=== PATIENT | female | born 1970 | race Caucasian/White ===

== ENCOUNTER → 2017-06-18 | Outpatient (CLI) | payer BC ==
--- NOTE | 2017-06-20 07:47 | MM ---
Reason for exam: screening (asymptomatic). Last mammogram was performed 1 year and 9 months ago. History: Family history of breast cancer in mother at age 58, breast cancer in aunt at age 60, and breast cancer in cousin at age 50. Physical Findings: A clinical breast exam by your physician is recommended on an annual basis and results should be correlated with mammographic findings. MG 3D Screening Mammo W/Cad Bilateral CC and MLO view(s) were taken. Prior study comparison: September 29, 2015, bilateral MG 3d screening mammo w/cad. May 06, 2013, bilateral digital screening mammo w/CAD. The breast tissue is heterogeneously dense. This may lower the sensitivity of mammography. No suspicious abnormality. No significant changes when compared with prior studies. ASSESSMENT: Negative, BI-RAD 1 RECOMMENDATION: Routine screening mammogram of both breasts in 1 year.
== END | disposition home or self-care (01) ==
LOC: RADMAMWWP 17:10
PROVIDERS: ATTEND Obstetrics & Gynecology
DX: Z12.31 Encounter for screening mammogram for malignant neoplasm of breast (principal); Z80.3 Family history of malignant neoplasm of breast
CPT/HCPCS: 77063; 77067

== ENCOUNTER 2018-06-07 12:32 | Emergency (ER) | payer OTHER, BC ==
[2018-06-07 12:48] VITALS: BP 127/66; PULSE 85; RESP 18; TEMP 96.8
--- NOTE | 2018-06-07 13:52 | ED ---
Fall HPI - General Chief Complaint: Fall Stated Complaint: slipped on ice/hit head Time Seen by Provider: 06/07/18 12:47 Source: patient, RN notes reviewed Mode of arrival: ambulatory Limitations: no limitations - History of Present Illness Initial Comments: This a 47-year-old female presents emergency Department with chief complaint of slip and fall, head injury. Patient states that she was going into work states that she slipped on some ice fell directly backwards. She states she has soreness multiple areas but her primary complaint is head injury, headache. Patient states that she did not pass out but states that she was slightly dazed at that time. Patient was sent in for evaluation. Denies any blurred vision, focal weakness. Patient states she is able to ambulate with no difficulty. Patient denies any current nausea vomiting, chest pain or shortness breath. - Related Data Home Medications Medication Instructions Recorded Confirmed Ibuprofen [Motrin Ib] 400 mg PO Q6H PRN 06/07/18 06/07/18 Allergies Allergy/AdvReac Type Severity Reaction Status Date / Time Sulfa (Sulfonamide Allergy Unknown Verified 06/07/18 12:55 Antibiotics) Review of Systems ROS Statement: Those systems with pertinent positive or pertinent negative responses have been documented in the HPI. ROS Other: All systems not noted in ROS Statement are negative. Past Medical History Past Medical History: No Reported History History of Any Multi-Drug Resistant Organisms: None Reported Past Surgical History: Section Past Psychological History: No Psychological Hx Reported Smoking Status: Never smoker Past Alcohol Use History: Occasional Past Drug Use History: None Reported General Exam Limitations: no limitations General appearance: alert, in no apparent distress Head exam: Present: atraumatic, normocephalic, normal inspection Eye exam: Present: normal appearance, PERRL, EOMI. Absent: scleral icterus, conjunctival injection, periorbital swelling ENT exam: Present: normal exam, normal oropharynx, mucous membranes moist, TM's normal bilaterally, normal external ear exam Neck exam: Present: normal inspection, full ROM. Absent: tenderness, meningismus, lymphadenopathy Respiratory exam: Present: normal lung sounds bilaterally. Absent: respiratory distress, wheezes, rales, rhonchi, stridor Cardiovascular Exam: Present: regular rate, normal rhythm, normal heart sounds. Absent: systolic murmur, diastolic murmur, rubs, gallop, clicks GI/Abdominal exam: Present: soft, normal bowel sounds. Absent: distended, tenderness, guarding, rebound, rigid Back exam: Absent: CVA tenderness (R), CVA tenderness (L) Neurological exam: Present: alert, oriented X3, CN II-XII intact, reflexes normal, other (Finger to nose intact bilaterally without overshooting). Absent : motor sensory deficit Skin exam: Present: warm, dry, intact, normal color. Absent: rash Course Vital Signs 06/07/18 12:45 Temperature 96.8 F L Pulse Rate 85 Respiratory 18 Rate Blood Pressure 127/66 O2 Sat by Pulse 95 Oximetry Medical Decision Making - Medical Decision Making 47-year-old female presented from for slip and fall. CT was obtained of the head and neck which showed no acute abnormality. She is neurologically intact and will be discharged with follow-up return parameters were discussed. Disposition Clinical Impression: Head injury, Fall from slipping on ice Disposition: HOME SELF-CARE Condition: Stable Instructions (If sedation given, give patient instructions): Head Injury (ED) Additional Instructions: Please return to the Emergency Department if symptoms worsen or any other concerns. Is patient prescribed a controlled substance at d/c from ED?: No Referrals: Talisha Ames MD [Primary Care Provider] - 1-2 days Time of Disposition: 14:32
--- NOTE | 2018-06-07 14:17 | CT ---
EXAMINATION TYPE: CT brain dionte wo con DATE OF EXAM: 06/07/2018 COMPARISON: None HISTORY: Pain/fall CT DLP: 1249.1 mGycm, Automated exposure control for dose reduction was used. CONTRAST: Patient injected with 0 mL of Isovue 300. CT of the brain is performed utilizing 3 mm thick sections through the posterior fossa and 3 mm thick sections through the remaining calvarium. Study is performed within 24 hours of arrival to the hospital. No abnormal hyperdensity is present to suggest an acute intracranial hemorrhage. No mass lesion is evident. No acute infarcts are evident. Ventricles and sulci are appropriate for the patient age. Paranasal sinuses and mastoid air cells within the [id number] are clear. IMPRESSIONS: 1. Normal CT brain. CT cervical spine. COMPARISON: None CT of the cervical spine is performed in the axial plane at 2 mm thick sections. Reconstructed image s in the coronal, and sagittal plane are reviewed on the computer. No acute fractures are evident. Vertebral body alignment is normal. Disc heights are preserved. Vertebral body heights are preserved. No spinal canal stenosis is evident. No neural foraminal stenosis is evident. IMPRESSIONS: 1. Normal CT cervical spine.
== END 2018-06-07 14:47 | disposition home or self-care (01) ==
LOC: EC 12:32
DX: S09.90XA Unspecified injury of head, initial encounter (principal); R52 Pain, unspecified; Z88.2 Allergy status to sulfonamides; W00.0XXA Fall on same level due to ice and snow, initial encounter; Y93.01 Activity, walking, marching and hiking; Y92.69 Other specified industrial and construction area as the place of occurrence of the external cause; Y99.0 Civilian activity done for income or pay
CPT/HCPCS: 70450; 72125; 99283

== ENCOUNTER → 2019-11-14 | Outpatient (CLI) | payer BC ==
--- NOTE | 2019-11-18 08:34 | MM ---
Reason for exam: screening (asymptomatic). Last mammogram was performed 2 years and 5 months ago. History: Family history of breast cancer in mother at age 58, breast cancer in aunt at age 60, and breast cancer in cousin at age 50. Physical Findings: A clinical breast exam by your physician is recommended on an annual basis and results should be correlated with mammographic findings. MG 3D Screening Mammo W/Cad Bilateral CC and MLO view(s) were taken. Prior study comparison: June 18, 2017, bilateral MG 3d screening mammo w/cad. September 29, 2015, bilateral MG 3d screening mammo w/cad. Finding: There is an intermediate concern, suspicious 8 mm equal density (isodense) mass in the upper outer quadrant of the left breast consistent with possible cyst. ASSESSMENT: Incomplete: need additional imaging evaluation, BI-RAD 0 RECOMMENDATION: Ultrasound of the left breast. [facility] will attempt to contact patient to return for ultrasound.
== END | disposition home or self-care (01) ==
LOC: RADMAMWWP 13:45
PROVIDERS: ATTEND Obstetrics & Gynecology
DX: Z12.31 Encounter for screening mammogram for malignant neoplasm of breast (principal)
CPT/HCPCS: 77063; 77067

== ENCOUNTER → 2019-11-25 | Outpatient (CLI) | payer BC ==
--- NOTE | 2019-11-26 08:20 | USB ---
Reason for exam: additional evaluation requested from abnormal screening. History: Family history of breast cancer in mother at age 58, breast cancer in aunt at age 60, and breast cancer in cousin at age 50. Physical Findings: Nurse did not find any significant physical abnormalities on exam. US Breast Workup Limited LT Left limited breast ultrasound including focal area of concern, retroareolar and axilla demonstrates a 4 x 2 x 6mm oval, cystic lesion at 1 o'clock and a 7 x 5 x 9mm oval, cystic lesion at 2 o'clock. These results were verbally communicated with the patient and result sheet given to the patient on 11/25/19. ASSESSMENT: Benign, BI-RAD 2 RECOMMENDATION: Return to routine screening mammogram schedule for both breasts.
== END | disposition home or self-care (01) ==
LOC: RADUSWWP 14:55
PROVIDERS: ATTEND Obstetrics & Gynecology
DX: R92.8 Other abnormal and inconclusive findings on diagnostic imaging of breast (principal)

== ENCOUNTER → 2020-09-23 | Outpatient (CLI) | payer BC ==
--- NOTE | 2020-09-23 15:49 | XR ---
EXAMINATION TYPE: XR chest 2V DATE OF EXAM: 09/23/2020 COMPARISON: 01/24/2013 TECHNIQUE: PA and lateral views submitted. HISTORY: Cough FINDINGS: The lungs are clear and there is no pneumothorax, pleural effusion, or focal pneumonia. Heart size normal. No overt failure. Mild hyperinflation. IMPRESSION: 1. No acute process.
== END | disposition home or self-care (01) ==
LOC: RADXRMAIN 15:15
PROVIDERS: ATTEND Surgery
DX: R05 Cough (principal)
CPT/HCPCS: 71046

== ENCOUNTER → 2020-09-23 | Outpatient (CLI) | payer BC ==
--- NOTE | 2020-09-23 15:19 | P.BASOAP ---
Subjective Progress Note Date: 09/23/20 Principal diagnosis: Cough, dysphagia Patient has had increasing cough last few months. Also with dysphagia. History of lap band 2006. Patient has an AP small band in place. She is unaware how much fluid is in the band. Last visit with the patient was at [facility]. Denies vomiting. No pain. Cough is nonproductive. No recent imaging. Currently weight 239. She was 265 prior to her lap band. Her lowest weight was 205. Patient has been exercising with a personal lines sales executive fairly regularly. She is frustrated with her slow weight loss. Objective - Exam Abdomen: Soft, nontender, nondistended Assessment/Plan (1) Morbid obesity Narrative/Plan: 50-year-old female with ongoing morbid obesity and recent complaints of increasing cough. Patient's dysphagia may be slightly worse. At this time we have decided to empty the band temporarily to see if this helps with the patient's cough which seems to be worse in the evening. Also will obtain chest x-ray to evaluate for any infiltrates. Plan esophagram at the time of the next visit. We'll obtain documentation from her previous visit at [facility]. Plan: Date: Initial Weight: Initial BMI: Current Weight: Current BMI: Type of Surgery: Total Volume in Band: Previous Volume: Volume Removed: Volume Added: Band Size:
[2020-09-23 15:32] VITALS: BMI 39.7
== END ==
LOC: BARWHC3 14:47
PROVIDERS: ATTEND Surgery
DX: E66.01 Morbid (severe) obesity due to excess calories (principal); R05 Cough; R13.10 Dysphagia, unspecified; Z98.84 Bariatric surgery status; Z88.2 Allergy status to sulfonamides; Z68.39 Body mass index [BMI] 39.0-39.9, adult
CPT/HCPCS: 99212

== ENCOUNTER → 2020-11-19 | Outpatient (CLI) | payer BC ==
--- NOTE | 2020-11-23 11:04 | MM ---
Reason for exam: screening (asymptomatic). Last mammogram was performed 1 year ago. History: Family history of breast cancer in mother at age 58, breast cancer in aunt at age 60, and breast cancer in cousin at age 50. Physical Findings: A clinical breast exam by your physician is recommended on an annual basis and results should be correlated with mammographic findings. MG 3D Screening Mammo W/Cad Bilateral CC and MLO view(s) were taken. Prior study comparison: November 14, 2019, bilateral MG 3d screening mammo w/cad. June 18, 2017, bilateral MG 3d screening mammo w/cad. The breast tissue is heterogeneously dense. This may lower the sensitivity of mammography. Stable benign calcifications. There is no discrete abnormality. No significant changes when compared with prior studies. ASSESSMENT: Benign, BI-RAD 2 RECOMMENDATION: Routine screening mammogram of both breasts in 1 year.
== END | disposition home or self-care (01) ==
LOC: RADMAMWWP 16:29
PROVIDERS: ATTEND Obstetrics & Gynecology
DX: Z12.31 Encounter for screening mammogram for malignant neoplasm of breast (principal); Z80.3 Family history of malignant neoplasm of breast
CPT/HCPCS: 77063; 77067

== ENCOUNTER → 2020-11-29 | Outpatient (CLI) | payer BC ==
--- NOTE | 2020-11-29 09:52 | FL ---
EXAMINATION TYPE: FL barium swallow DATE OF EXAM: 11/29/2020 CLINICAL HISTORY: Reflux symptoms. History of lap band TECHNIQUE: A single contrast esophagram is performed utilizing air and barium. A total of 43 second s of fluoroscopic time was utilized during procedure and 45 images obtained. COMPARISON: 11/02/2010 FINDINGS: The esophagus shows normal motility and emptying into the stomach. No evidence of hiatal h ernia or stricture noted. No significant gastroesophageal reflux was seen during real time performanc e of this study. Lap band is noted. IMPRESSION: No significant abnormality is seen to account for patient's symptoms.
== END | disposition home or self-care (01) ==
LOC: RADUSWWP 09:06
PROVIDERS: ATTEND Surgery
DX: Z98.84 Bariatric surgery status (principal); K21.9 Gastro-esophageal reflux disease without esophagitis
CPT/HCPCS: 74220

== ENCOUNTER → 2021-01-18 | Outpatient (CLI) | payer BC ==
[2021-01-18 15:44] VITALS: BP 118/77; PULSE 76; RESP 16; TEMP 98.4; BMI 39.9
--- NOTE | 2021-01-18 16:51 | P.BASOAP ---
Subjective Progress Note Date: 01/18/21 Principal diagnosis: Morbid obesity Patient returns for evaluation. He was seen in September and had 9 mL removed from her lap band. That led to resolution in her reflux and dysphagia. Upper GI from November shows no evidence of obstruction or prolapse. She has only gained 1 pound since her last visit. She says it is difficult with the band being empty and she is surprised she has not lost more weight. Objective - Vital Signs Vital signs: Vital Signs Temp 98.4 F 01/18/21 15:42 Pulse 76 01/18/21 15:42 Resp 16 01/18/21 15:42 BP 118/77 01/18/21 15:42 Pulse Ox Intake & Output 01/17/21 01/18/21 01/18/21 18:59 06:59 18:59 Weight 108.862 kg - Exam Abdomen: Soft, nontender, nondistended Assessment/Plan (1) Morbid obesity Narrative/Plan: Options discussed with patient. She is interested in possible conversion to gastric bypass. This will be looked into further. For now patient would like to have some fluid added to her band. We agreed to add 5 mL at this time. Will return to add more fluid if needed. The patient's lap band port was palpated. The site was aseptically prepped. The Guerra needle was advanced into the port. A total of 5ml of fluid was added. Pressure was held and a sterile dressing was applied. Plan: Date: 01/18/21 Initial Weight: 108.409 kg Initial BMI: 39.7 Current Weight: 108.862 kg Current BMI: 39.9 Type of Surgery: Total Volume in Band: Previous Volume: Volume Removed: Volume Added: Band Size:
== END ==
LOC: BARWHC3 15:17
PROVIDERS: ATTEND Surgery
DX: Z46.51 Encounter for fitting and adjustment of gastric lap band (principal); E66.01 Morbid (severe) obesity due to excess calories; Z68.39 Body mass index [BMI] 39.0-39.9, adult; Z88.2 Allergy status to sulfonamides
CPT/HCPCS: 99212

== ENCOUNTER → 2021-05-02 | Outpatient (CLI) | payer BC ==
[2021-05-02 11:18] VITALS: BMI 40.7
== END ==
LOC: BARWHC3 08:57
PROVIDERS: ATTEND Surgery
DX: E66.01 Morbid (severe) obesity due to excess calories (principal); Z71.3 Dietary counseling and surveillance; Z68.41 Body mass index [BMI] 40.0-44.9, adult; Z88.2 Allergy status to sulfonamides
CPT/HCPCS: 97804

== ENCOUNTER → 2021-06-16 | Outpatient (CLI) | payer BC ==
[2021-06-16 14:02] LABS: INR 0.9 (<1.2); Partial Thromboplastin Time 22.9 sec (22.0-30.0); Prothrombin Time 9.8 sec (9.0-12.0)
[2021-06-16 19:39] LABS: HCT 41.5 % (37.2-46.3); HGB 13.6 g/dL (12.0-15.0); MCH 31.5 pg (27.0-32.0); MCHC 32.8 g/dL (32.0-37.0); MCV 96.1 fL (80.0-97.0); Mean Platelet Volume 10.5 fL (9.5-12.2); Platelet Count 241 X 10*3/uL (140-440); RBC 4.32 X 10*6/uL (4.10-5.20); WBC 9.16 X 10*3/uL (4.50-10.00)
[2021-06-16 21:04] LABS: % Iron Saturation 22.46 (12.00-45.00); ALT 18 U/L (8-44); AST 19 U/L (13-35); African American GFR (CKD) 79.4 (60.0-200.0); Albumin 4.2 g/dL (3.8-4.9); Albumin/Globulin Ratio 1.96 (1.60-3.17); Alkaline Phosphatase 46 U/L (41-126); BUN/Creat Ratio 15.76 Ratio (12.00-20.00); Blood Urea Nitrogen 15.4 mg/dL (9.0-27.0); Calcium 9.1 mg/dL (8.7-10.3); Carbon Dioxide 18.4 mmol/L (20.0-27.5); Chloride 107 mmol/L (96-109); Ferritin 31.2 ng/mL (10.0-291.0); Globulin 2.1 g/dL (1.6-3.3); Glucose 92 mg/dL (70-110); Iron 82 ug/dL (50-170); Magnesium 2.2 mg/dL (1.5-2.4); Non-African American GFR(CKD) 68.5 (60.0-200.0); Phosphorus 2.8 mg/dL (2.4-5.1); Potassium 4.3 mmol/L (3.5-5.5); Sodium 139 mmol/L (135-145); Total Bilirubin <0.20 mg/dL (0.30-1.20); Total Iron Binding Capacity 367 ug/dL (228-460); Total Protein 6.3 g/dL (6.2-8.2)
[2021-06-16 21:09] LABS: Chol/HDL Ratio 3.57 Ratio; LDL Cholesterol,Calculated 93.4 mg/dL (0.0-131.0); Prealbumin 21.5 mg/dL (18.0-42.0)
[2021-06-17 15:32] LABS: Anabasine Urine <2.0 ng/mL (<2.0)
== END | disposition home or self-care (01) ==
LOC: LABPAT 13:04
PROVIDERS: ATTEND Surgery Plastic and Reconstructive Surgery
DX: Z01.812 Encounter for preprocedural laboratory examination (principal); Z20.822 Contact with and (suspected) exposure to COVID-19; E66.01 Morbid (severe) obesity due to excess calories; E55.9 Vitamin D deficiency, unspecified; D50.8 Other iron deficiency anemias; K50.90 Crohn's disease, unspecified, without complications; K90.89 Other intestinal malabsorption; K74.1 Hepatic sclerosis; N19 Unspecified kidney failure
CPT/HCPCS: 84255; 84134; 84425; 80061; 80053; 82607; 82728; 82525; 82746; 83540; 83550; 83735; 84100; 84443; 84590; 84630; 85027; 85610; 85730; 82306; 80323; 83970; 83036; 80307; 93005; G0482; U0003; C9803

== ENCOUNTER 2021-06-20 07:16 | Day surgery (SDC) | payer BC ==
[2021-06-13 18:29] VITALS: BMI 40.7
[~2021-06-20 07:16] MED LIST: CHLORHEXIDINE GLUCONATE 15 ML CUP MUCOUS MEM PRN; DEXAMETHASONE SOD PHOSPHATE 4 MG/ML 1 ML VIAL IV ONE; HYDROmorphone 1 MG/ML 1 ML SYRINGE IVP PRN; KETOROLAC 15 MG/ML 1 ML VIAL IVP SCH; LACTATED RINGERS 1,000 ML IV SCH; LIDOCAINE 1% (10MG/ML) FOR IV START INTRADERMA PRN; METOCLOPRAMIDE 5 MG/ML 2 ML VIAL IVP PRN; ONDANSETRON 4 MG/2 ML VIAL IVP ONE; PANTOPRAZOLE 40 MG/10 ML VIAL IVP PRN
[2021-06-20] MEDS ORDERED: BUPIVACAIN-EPI 0.25%-1:200,000 30 ML VIAL SQ ONE ×2 (07:33→09:09)
[2021-06-20] MEDS ORDERED: SCOPOLAMINE 1.5MG/72HR PATCH TRANSDERM PRN (07:48)
[2021-06-20] MEDS ORDERED: ACETAMINOPHEN TAB 500 MG TAB PO PRN (07:48)
[2021-06-20] MEDS ORDERED: GABAPENTIN 300 MG CAP PO PRN (07:48)
--- NOTE | 2021-06-20 07:48 | P.GSHP ---
History of Present Illness H&P Date: 06/20/21 CHIEF COMPLAINT: Complications from adjustable gastric band HISTORY OF PRESENT ILLNESS: The patient is a 50-year-old female who presents with dysphagia, gastroesophageal reflux disease and complications from adjustable gastric band for over 3 years. As a result, patient presents for removal of adjustable gastric band and all components. PAST MEDICAL HISTORY: Please see list. PAST SURGICAL HISTORY: Please see list. MEDICATIONS: Please see list. ALLERGIES: Please see list. SOCIAL HISTORY: No illicit drug use FAMILY HISTORY: No reports of Crohn disease or ulcerative colitis. REVIEW OF ORGAN SYSTEMS: CONSTITUTIONAL: No reports of fevers or chills. GI: Denies any blood in stools or constipation. PHYSICAL EXAM: VITAL SIGNS: Stable GENERAL: Well-developed pleasant and in no acute distress. HEENT: No scleral icterus. Extraocular movements grossly intact. Moist buccal mucosa. NECK: Supple without lymphadenopathy. CHEST: Unlabored respirations. Equal bilateral excursions. CARDIOVASCULAR: Regular rate and rhythm. Distal 2+ pulses. ABDOMEN: Soft, nondistended. MUSCULOSKELETAL: No clubbing, cyanosis, or edema. SKIN: Well-perfused. Good skin turgor. ASSESSMENT: 1. Morbid obesity due to excess calories, BMI 40.8 2. Complications from adjustable gastric band PLAN: 1. Recommend proceeding with removal of adjustable gastric band and all components with intraoperative esophagogastroduodenoscopy 2. DVT prophylaxis. 3. Antibiotic prophylaxis. Past Medical History Past Medical History: Hyperlipidemia Additional Past Medical History / Comment(s): Recent abn cholesterol. c/o acid reflux, muscle cramping around lab band port History of Any Multi-Drug Resistant Organisms: None Reported Past Surgical History: Bariatric Surgery, Section Additional Past Surgical History / Comment(s): EGD. Lap Band 2006 Past Anesthesia/Blood Transfusion Reactions: No Reported Reaction, Motion Si ckness Smoking Status: Former smoker - Past Family History Mother Family Medical History: Cancer Additional Family Medical History / Comment(s): breast cancer. (Maternal Aunt had breast cancer) Medications and Allergies Home Medications Medication Instructions Recorded Confirmed Type Ibuprofen [Motrin Ib] 400 mg PO Q6H PRN 06/07/18 06/13/21 History Calcium + Vitamin D 2 each PO BID 06/13/21 History Multivitamins, Thera [Multivitamin 1 tab PO DAILY 01/31/22 01/31/22 History (formulary)] Allergies Allergy/AdvReac Type Severity Reaction Status Date / Time Sulfa (Sulfonamide Allergy Unknown Verified 06/20/21 07:44 Antibiotics) steri strips adhesive Allergy skin Uncoded 06/20/21 07:44 blisters, itching
[2021-06-20] MEDS ORDERED: MELOXICAM 7.5 MG TAB PO SCH (07:49)
[2021-06-20] MEDS ORDERED: ENOXAPARIN 40 MG/0.4 ML SYRINGE SQ PRN (07:50)
[2021-06-20] MEDS ORDERED: NEOSTIGMINE 1 MG/ML 10 ML VIAL ONE (08:30)
[2021-06-20] MEDS ORDERED: fentaNYL (PF) 50 MCG/ML 2 ML AMP ONE (08:30)
[2021-06-20] MEDS ORDERED: ROCURONIUM 10 MG/ML (5 ML VIAL) IV ONE (08:30)
[2021-06-20] MEDS ORDERED: PROPOFOL 10 MG/ML 20 ML VIAL IV ONE (08:30)
[2021-06-20] MEDS ORDERED: GLYCOPYRROLATE 0.2 MG/ML 2 ML VIAL ONE (08:30)
[2021-06-20] MEDS ORDERED: SUCCINYLCHOLINE CHLORIDE VIAL 200 MG/10 ML VIAL IV ONE (08:30)
[2021-06-20] MEDS ORDERED: LIDOCAINE 1% INJ 10MG/ML (20 ML MDV) ONE (08:30)
[2021-06-20] MEDS ORDERED: MIDAZOLAM 2 MG/2 ML VIAL IVP ONE (08:30)
[2021-06-20] MEDS ORDERED: HYDROmorphone (PF) 1 MG/ML ONE (08:30)
--- NOTE | 2021-06-20 10:38 | P.OP ---
Date of Procedure: 06/20/21 Description of Procedure: SURGEON: ABHIJEET JIMENEZ MD PREOPERATIVE DIAGNOSES: 1. Morbid obesity due to excess calories 2. Body mass index of 40.0 3. Gastroesophageal reflux disease 4. Osteoarthritis of the knees 5. Complications from adjustable gastric band POSTOPERATIVE DIAGNOSES: 1. Morbid obesity due to excess calories 2. Body mass index of 40.0 3. Gastroesophageal reflux disease 4. Osteoarthritis of the knees 5. Complications from adjustable gastric band 6. Peritoneal adhesions greater omentum to abdominal wall epigastrium, left upper quadrant OPERATION: 1. Robotic-assisted da Hardy Xi laparoscopic removal of adjustable gastric band and all components. 2. Robotic-assisted da Hardy Xi laparoscopic lysis of adhesions, 30 minutes 3. Intraoperative esophagogastroduodenoscopy ANESTHESIA: General with local anesthetic. ESTIMATED BLOOD LOSS: 5 mL SPECIMENS REMOVED: 1. Adjustable gastric band and components Condition: stable Disposition: same day COMPLICATIONS: None. Operative Findings: 1. Moderate adhesions along the epigastrium due to adjustable gastric band 2. Adjustable gastric band port found along the epigastrium removed in total 3. Severe perihepatic including perigastric adhesions from adjustable gastric band with band embedded into the liver carefully dissected 4. Chronic gastritis without gastric banding erosion from upper endoscopy 5. Extremely dense subcutaneous tissue requiring dissection for port removal 6. Gallbladder wall thickening including pericholecystic adhesions suspicious for chronic cholecystitis INDICATIONS: The patient is a 50-year-old female who presents with complications of her adjustable gastric band. Surgical options were described including removal of the band. As she has persistent pain and discomfort from the band, removal of the adjustable gastric band and port including all components was proposed. Benefits and risks of the procedure were described. Informed consent was obtained. DESCRIPTION: The patient was brought into the operating room theater. She was placed supine. She had received Lovenox subcutaneously for DVT prophylaxis. Additionally she Peridex oral solution as an oral decontaminant was placed per anesthesia. After general induction, the abdomen was prepped and draped in s tandard sterile fashion. Ioban draping was placed along the abdomen. A robotic da Hardy Xi system was prepped and primed. Prior to incision, a timeout protocol was performed and confirmed with the surgical team. Attention was now brought to the intra-abdominal component of the procedure the removal of the adjustable gastric band. Incisions were proposed at 12 cm from the xiphoid. Proposed port sites were marked with indelible marker along the anterior axillary line bilaterally, mid clavicular line bilaterally with each port marked 10 cm from each other. Prior laparoscopic trocar sites were used. The port was palpated along the epigastrium. Her subcutaneous tissue was at least 5 cm in depth. A transverse 3 cm incision was placed over the adjustable gastric band port site using #11 blade. The incision was deepened to the subcutaneous tissue using electrocautery Bovie cautery. The port was identified and circumferentially dissected free from the surrounding tissues. Once freed, the port was removed from the pocket and placed onto the skin. The band was removed in total without injury to the stomach. Hemostasis was excellent. Next attention was brought to the laparoscopic portion of the case. A 5 mm 0 degrees laparoscopic trocar entry was performed along the left upper quadrant. The abdomen was insufflated to 15 mmHg pressure, which she tolerated well. Diagnostic laparoscopy demonstrated no injury to bowel, viscera, or mesentery. An 8 mm camera port was placed left lateral to the umbilicus at the epigastrium, 12 cm distal to the xiphoid. Next, 8-mm port was placed along the right mid abdomen. The 5 mm port was exchanged for 12 mm trocar. Another 8 mm trocar was placed on the left lateral abdominal wall. The robot was docked along the left lateral abdomen. The patient was repositioned in reverse Trendelenburg position, 21-degrees. A 30-degree camera was used. Using a Prograsp for arm 3, including scissors with cautery for arm 1, the robotic system was docked and primed as described. Instruments were interchanged by the assistant manager of operations. I had sat at the console. Moderate to severe adhesions along the epigastrium including right upper and lower quadrant and greater omentum to abdominal wall was found. Extensive lysis of adhesions over 30 minutes was performed using endo-scissors with cautery to free these adhesions including around the adjustable gastric band. Adjustable gastric band was embedded into the left lobe of the liver which was carefully dissected free. Additionally, the buckle of the adjustable gastric band was densely adherent to the deep tissue requiring cutting the band away from the buckle. The port was followed with its tubing to the gastric band. The gastrohepatic ligament was scarred from prior surgery. The cicatrix around the adjustable gastric band was carefully dissected free. The anti-prolapse stitch was divided and removed. Using scissors with cautery, the cicatrix of the port was incised. The band was then freed. Jasan adjustable gastric band was removed in total. Care was taken to avoid any gastrotomies. The band was unbuckled and cut. The tubing was cut approximately 5 cm distal to the actual adapter. I then went to the head of the bed to perform intraoperative esophagogastroduodenoscopy to evaluate for gastritis including gastric banding erosion and any full thickness injury to the stomach. An Olympus gastroscope was passed from the posterior oropharynx down to the esophagus, where the squamocolumnar junction was found LA grade B erosive esophagitis, chronic changes. The stomach was entered and bile was found and suctioned. Mild chronic gastritis was found along the antrum without gastric ulcers or duodenitis or duodenal ulcers. Retroflexion of the scope confirmed a Hill grade 2 lower esophageal valve. No full-thickness erosion from the prior band was encountered. No gastric band erosion was identified. The stomach was desufflated. The patient tolerated the procedure well. No evidence of leak was encountered from the removal of the band. The scope was removed with desufflation of the stomach. I re-scrubbed into the case. The adjustable gastric band was removed from the abdominal cavity via 12 mm port that was exchanged for the 5-mm port at the left upper abdomen. Diagnostic laparoscopy demonstrated complete removal of all foreign body. All instruments and pneumoperitoneum were evacuated from the abdominal cavity. The port extraction site was hemostatic. The port site was irrigated using normal saline and hydrogen peroxide. The incisions were reapproximated using 4- 0 Monocryl in a subcuticular interrupted fashion. Optifoam dressing was placed over the port extraction site. At the end of the procedure, needle, sponge and instrument counts were verified correct by the nursing surgical services director. The patient had tolerated the procedure well. An abdominal binder was placed. The patient was transferred to Postanesthesia Care Unit in stable condition. Postoperative findings with intraoperative images were discussed with the patient's family who were pleased with the level of care. Plan - Discharge Summary Discharge Rx Participant: No New Discharge Prescriptions: New Omeprazole [PriLOSEC] 40 mg PO DAILY #14 cap Simethicone [Gas-X] 125 mg PO AC-TID PRN #20 capsule PRN Reason: Pain Ibuprofen 800 mg PO Q8HR PRN #30 tablet PRN Reason: Pain Acetaminophen Tab [Tylenol Tab] 1,000 mg PO Q6HR PRN #30 tablet PRN Reason: Pain Continue Multivitamins, Thera [Multivitamin (formulary)] 1 tab PO DAILY Linaclotide [Linzess] 72 mcg PO DAILY Calcium + Vitamin D 2 each PO BID Discontinued Ibuprofen [Motrin Ib] 400 mg PO Q6H PRN PRN Reason: Pain Discharge Medication List Calcium + Vitamin D 2 each PO BID 06/13/21 [History] Multivitamins, Thera [Multivitamin (formulary)] 1 tab PO DAILY 06/13/21 [History] Acetaminophen Tab [Tylenol Tab] 1,000 mg PO Q6HR PRN #30 tablet 06/20/21 [Rx] Ibuprofen 800 mg PO Q8HR PRN #30 tablet 06/20/21 [Rx] Linaclotide [Linzess] 72 mcg PO DAILY 06/20/21 [History] Omeprazole [PriLOSEC] 40 mg PO DAILY #14 cap 06/20/21 [Rx] Simethicone [Gas-X] 125 mg PO AC-TID PRN #20 capsule 06/20/21 [Rx] Follow up [facility]ment(s[facility]Ref[facility] [place] [facility] Patient Instructions/Handouts: Adjustable Gastric Band Removal (GEN), *[facility] - Managing Your Pain After Surgery Without Opioids Activity/Diet/Wound Care/Special Instructions: Using antibacterial or HIBICLENS soap. No lifting over 10 pounds 2 weeks, Jul 04 May shower. No bathtub soaks for 2 weeks, Jul 04 Wear abdominal binder daily for comfort except for showering. Use ice along incisions for today to prevent swelling. Take tylenol, aleve/ibuprofen, simethicone scheduled for 3 days for best pain relief Discharge Disposition: HOME SELF-CARE
[2021-06-20 11:00] VITALS: TEMP 97.5
[2021-06-20 12:34] VITALS: BP 109/67; PULSE 76; RESP 15
[2021-06-20] MEDS ORDERED: ONDANSETRON ODT 4 MG TAB PO ONE (13:29)
[2021-06-21] MEDS ORDERED: ENOXAPARIN 40 MG/0.4 ML SYRINGE SQ PRN (07:00)
== END 2021-06-20 13:30 | disposition home or self-care (01) ==
LOC: OR 07:16
PROVIDERS: ATTEND Surgery Plastic and Reconstructive Surgery
DX: K95.09 Other complications of gastric band procedure (principal); K66.0 Peritoneal adhesions (postprocedural) (postinfection); K29.50 Unspecified chronic gastritis without bleeding; E78.5 Hyperlipidemia, unspecified; K21.9 Gastro-esophageal reflux disease without esophagitis; R25.2 Cramp and spasm; Z98.891 History of uterine scar from previous surgery; Z87.891 Personal history of nicotine dependence; Z80.3 Family history of malignant neoplasm of breast; E66.01 Morbid (severe) obesity due to excess calories; Z68.41 Body mass index [BMI] 40.0-44.9, adult; M17.0 Bilateral primary osteoarthritis of knee; Z79.899 Other long term (current) drug therapy; Z88.2 Allergy status to sulfonamides; Z91.09 Other allergy status, other than to drugs and biological substances
CPT/HCPCS: 43239; 43774; J2250; J0330; J1100; J2710; J0690; J2405; J2001; J1650; J3010; J1170; J2704; C9113; J1790

== ENCOUNTER → 2021-06-22 | Outpatient (CLI) | payer BC ==
--- NOTE | 2021-06-22 15:34 | P.BASOAP ---
Subjective Progress Note Date: 06/22/21 DATE OF SERVICE: 06/22/2021 CHIEF COMPLAINT: Morbid obesity HISTORY OF PRESENT ILLNESS: Roma Grimes is a 50-year-old female with history of adjustable gastric band since 2006. She is now status post band removal 06/20/21. She is POD 2. She is undergoing medical supervised weight loss. She is doing very well. She is looking into gastric bypass. At height of 5 feet 5 inches, her ideal body weight is 149 pounds. Her highest weight is 265 pounds, body mass index 44.2. Her lowest weight with the band was 200 pounds. She comes in 246 pounds from 244 pounds, 1 month ago. Her body mass index is 41.1. She is 97 pounds overweight. Her lifetime weight loss is 19 pounds. Her percent lifetime weight loss is 16%. PHYSICAL EXAM: VITAL SIGNS: Height 5 foot 5 inches, weight 246 pounds. BMI 41.1 Vital Signs Temp 99 F 06/22/21 17:15 Pulse 82 06/22/21 17:15 Resp BP 135/80 06/22/21 17:15 Pulse Ox GENERAL: Well-developed in no acute distress. HEENT: No scleral icterus. Extraocular movements grossly intact. Hears conversational speech. No nasal drainage. NECK: Supple without lymphadenopathy. CHEST: Nonlabored respirations with equal bilateral excursions. CARDIOVASCULAR: Regular rate and regular rhythm. Distal 2+ pulses. ABDOMEN: Obese. Incisions intact. Dressing removed. MUSCULOSKELETAL: No clubbing, cyanosis. NEURO: No focal or lateralizing signs. Cranial nerves 2 through 12 grossly within normal limits. PSYCH: Appropriate affect. Alert and oriented to person, place and time. SKIN: Good skin turgor. Well perfused. ASSESSMENT: 1. Morbid obesity due to excess calories 2. Body mass index of 44.2 to 40.8 3. Gastroesophageal reflux disease 4. Chronic constipation 5. Post op nausea and vomiting 6. Motion sickness 7. Generalized anxiety disorder 8. Depressive disorder 9. Complications of adjustable gastric band. 10. Status post band removal PLAN: 1. Findings of her band removal described. 2. Continue medical supervised weight loss. 3. She is looking into the gastric bypass. Follow up after completion of medical supervised weight loss. Assessment/Plan Plan: Date: Initial Weight: 108.409 kg Initial BMI: Current Weight: Current BMI: Type of Surgery: Total Volume in Band: 5 Previous Volume: Volume Removed: Volume Added: Band Size:
[2021-06-23 09:23] VITALS: BP 135/80; PULSE 82; TEMP 99; BMI 41.1
== END ==
LOC: BARWHC3 14:01
PROVIDERS: ATTEND Surgery Plastic and Reconstructive Surgery
DX: E66.01 Morbid (severe) obesity due to excess calories (principal); Z68.41 Body mass index [BMI] 40.0-44.9, adult; K21.9 Gastro-esophageal reflux disease without esophagitis; K59.09 Other constipation; R11.2 Nausea with vomiting, unspecified; T75.3XXA Motion sickness, initial encounter; F41.1 Generalized anxiety disorder; F32.A Depression, unspecified; K95.89 Other complications of other bariatric procedure; Z88.2 Allergy status to sulfonamides; Z91.048 Other nonmedicinal substance allergy status
CPT/HCPCS: 99211

== ENCOUNTER → 2021-07-20 | Outpatient (CLI) | payer BC ==
[2021-07-20 16:23] VITALS: BP 134/70; PULSE 87; TEMP 98.1; BMI 40.6
--- NOTE | 2021-07-20 17:22 | P.BASOAP ---
Subjective Progress Note Date: 07/20/21 DATE OF SERVICE: 07/20/2021 CHIEF COMPLAINT: Status post adjustable agstric band HISTORY OF PRESENT ILLNESS: Roma Grimes is a 50-year-old female with history of adjustable gastric band since 2006. She is now status post band removal 06/20/21. She is 1 month out following band removal. She denies new abdominal pain. At height of 5 feet 5 inches, her ideal body weight is 149 pounds. Her highest weight is 265 pounds, body mass index 44.2. Her lowest weight with the band was 200 pounds. She comes in 243 pounds from 246 pounds, 1 month ago. She has lost 3 pounds in 1 month. Her body mass index is 40.6. She is 94 pounds overweight. Her lifetime weight loss is 22 pounds. Her percent lifetime weight loss is 19%. PHYSICAL EXAM: VITAL SIGNS: Height 5 foot 5 inches, weight 246 pounds. BMI 41.1 Vital Signs Temp 98.1 F 07/20/21 16:21 Pulse 87 07/20/21 16:21 Resp BP 134/70 07/20/21 16:21 Pulse Ox GENERAL: Well-developed in no acute distress. HEENT: No scleral icterus. Extraocular movements grossly intact. Hears conversational speech. No nasal drainage. NECK: Supple without lymphadenopathy. CHEST: Nonlabored respirations with equal bilateral excursions. CARDIOVASCULAR: Regular rate and regular rhythm. Distal 2+ pulses. ABDOMEN: Obese. Non-tender MUSCULOSKELETAL: No clubbing, cyanosis. NEURO: No focal or lateralizing signs. Cranial nerves 2 through 12 grossly within normal limits. PSYCH: Appropriate affect. Alert and oriented to person, place and time. SKIN: Good skin turgor. Well perfused. ASSESSMENT: 1. Morbid obesity due to excess calories 2. Body mass index of 44.2 to 40.6 3. Gastroesophageal reflux disease 4. Chronic constipation 5. Post op nausea and vomiting 6. Motion sickness 7. Generalized anxiety disorder 8. Depressive disorder 9. Complications of adjustable gastric band. 10. Status post band removal PLAN: 1. She is 1 month out following band removal. She has moderate scar tissue identified from adjustable gastric band. 2. She is high risk for leaks including stricture and ulcers following attempt ed gastric bypass. 3. Consent reviewed including risks reviewed. 4. Recovery of at least 4 weeks described. Objective - Vital Signs Vital signs: Vital Signs Temp 98.1 F 07/20/21 16:21 Pulse 87 07/20/21 16:21 Resp BP 134/70 07/20/21 16:21 Pulse Ox Intake & Output 07/19/21 07/20/21 07/20/21 18:59 06:59 18:59 Weight 110.677 kg Assessment/Plan Plan: Date: 07/20/21 Initial Weight: 108.409 kg Initial BMI: 39.7 Current Weight: 110.677 kg Current BMI: 40.6 Type of Surgery: Total Volume in Band: 5 Previous Volume: Volume Removed: Volume Added: Band Size:
== END ==
LOC: BARWHC3 15:59
PROVIDERS: ATTEND Surgery Plastic and Reconstructive Surgery
DX: E66.01 Morbid (severe) obesity due to excess calories (principal); Z68.41 Body mass index [BMI] 40.0-44.9, adult; K21.9 Gastro-esophageal reflux disease without esophagitis; K59.09 Other constipation; R11.2 Nausea with vomiting, unspecified; T75.3XXA Motion sickness, initial encounter; F41.1 Generalized anxiety disorder; F32.A Depression, unspecified; K95.89 Other complications of other bariatric procedure; Z88.2 Allergy status to sulfonamides; Z91.048 Other nonmedicinal substance allergy status
CPT/HCPCS: 99211

== ENCOUNTER → 2021-07-29 | Outpatient (CLI) | payer BC | END | disposition home or self-care (01) | LOC: LABPAT 15:31 | PROVIDERS: ATTEND Surgery Plastic and Reconstructive Surgery | DX: Z53.9 Procedure and treatment not carried out, unspecified reason (principal) ==

== ENCOUNTER 2021-08-01 06:22 | Inpatient (IN) | payer BC ==
[2021-07-29 10:57] VITALS: BMI 38.5
[2021-07-29 16:30] LABS: Basophils # (A) 0.1 k/uL (0-0.2); Basophils % (A) 1 %; Eosinophils # (A) 0.1 k/uL (0-0.7); Eosinophils % (A) 2 %; HCT 40.4 % (34.0-46.0); Lymphocytes # (A) 1.9 k/uL (1.0-4.8); Lymphocytes % (A) 24 %; MCH 31.6 pg (25.0-35.0); MCHC 32.3 g/dL (31.0-37.0); Mean Platelet Volume 8.1; Monocytes # (A) 0.4 k/uL (0-1.0); Monocytes % (A) 5 %; Neutrophils # (A) 5.1 k/uL (1.3-7.7); Neutrophils % (A) 67 %; Platelet Count 293 k/uL (150-450); RBC 4.12 m/uL (3.80-5.40); RDW 12.4 % (11.5-15.5); WBC 7.6 k/uL (3.8-10.6)
[2021-07-29 16:47] LABS: ALT 18 U/L (4-34); AST 30 U/L (14-36); African American GFR (CKD) >90 (>60 ml/min/1.73 sqM); Albumin 4.2 g/dL (3.5-5.0); Alkaline Phosphatase 48 U/L (38-126); Anion Gap 8 mmol/L; Blood Urea Nitrogen 18 mg/dL (7-17); Calcium 9.1 mg/dL (8.4-10.2); Carbon Dioxide 24 mmol/L (22-30); Chloride 103 mmol/L (98-107); Glucose 71 mg/dL (74-99); Non-African American GFR(CKD) 85 (>60 ml/min/1.73 sqM); Sodium 135 mmol/L (137-145); Total Bilirubin 0.7 mg/dL (0.2-1.3); Total Protein 6.8 g/dL (6.3-8.2)
[2021-08-01] MEDS ORDERED: ONDANSETRON 4 MG/2 ML VIAL IVP ONE ×2 (06:36→16:24)
[2021-08-01] MEDS ORDERED: HYDROmorphone 0.5 MG/0.5 ML SYRINGE IVP PRN (06:36)
[2021-08-01] MEDS ORDERED: DEXAMETHASONE SOD PHOSPHATE 4 MG/ML 1 ML VIAL IV ONE (06:36)
[2021-08-01] MEDS ORDERED: MIDAZOLAM 2 MG/2 ML VIAL IV PRN (06:36)
[2021-08-01] MEDS ORDERED: LIDOCAINE 1% (10MG/ML) FOR IV START INTRADERMA PRN (06:36)
[2021-08-01] MEDS ORDERED: CHLORHEXIDINE GLUCONATE 15 ML CUP MUCOUS MEM PRN (07:00)
[2021-08-01] MEDS ORDERED: PANTOPRAZOLE 40 MG/10 ML VIAL IVP PRN (07:00)
--- NOTE | 2021-08-01 10:10 | P.GSHP ---
History of Present Illness H&P Date: 08/01/21 CHIEF COMPLAINT: Morbid obesity HISTORY OF PRESENT ILLNESS: Roma Grimes is a 50-year-old female who comes with lifelong morbid obesity. As result of morbid obesity, she has developed hyperlipidemia, osteoarthritis of the joints and this esophageal reflux disease. She has completed medical supervised weight loss. She recently had removal of adjustable gastric band due to complications. She elected for gastric bypass. At height of 5 feet 6 inches, her ideal body weight is 154 pounds. She comes in 239 pounds. Her body mass index is 38.6 She is 84 pounds overweight. PAST MEDICAL HISTORY: 1. Morbid obesity due to excess calories 2. Body mass index of 38.6 3. Hyperlipidemia 4. Gastroesophageal reflux disease 5. Irritable bowel syndrome 6. Anxiety 7. Depressive disorder PAST SURGICAL HISTORY: 1. Adjustable gastric band placed with subsequent removal 2. Upper endoscopy 3. section HOME MEDICATIONS: Home Medications Medication Instructions Recorded Confirmed Calcium + Vitamin D 2 each PO BID 06/13/21 07/29/21 Multivitamins, Thera [Multivitamin 1 tab PO DAILY 06/13/21 07/29/21 (formulary)] Linaclotide [Linzess] 72 mcg PO DAILY 06/20/21 07/29/21 ALLERGIES: Allergies Allergy/AdvReac Type Severity Reaction Status Date / Time Sulfa (Sulfonamide Allergy Unknown Verified 07/29/21 10:33 Antibiotics) steri strips adhesive Allergy skin Uncoded 07/29/21 10:33 blisters, itching SOCIAL HISTORY: Past tobacco use. FAMILY HISTORY: No family history of ulcerative colitis disease or Crohn's disease. Family history of morbid obesity. No lupus in the family. No reports of stomach or esophageal cancer. REVIEW OF ORGAN SYSTEMS: CONSTITUTIONAL: At height of 5 feet 6 inches, her ideal body weight is 154 pounds. She comes in 239 pounds. Her body mass index is 38.6 She is 84 pounds overweight. HEENT: Denies any active troubles with vision or hearing. ENDOCRINE: Denies diabetes.Denies hypothyroidism. CARDIOVASCULAR: Denies reports of palpitations or heart attacks or chest pain. RESPIRATORY: Has daytime somnolence. GASTROINTESTINAL: Denies any bright red blood per rectum. Has gastroesophageal reflux disease. MUSCULOSKELETAL: Has lower back pain and joint pain. Has osteoarthritis of the knees. NEURO: No headaches. No seizure disorders. PSYCH: Has depression. No suicidal ideation. RHEUMATOLOGIC: No lupus. No rheumatoid arthritis. HEMATOLOGIC: Denies any abnormal bleeding or bruising. No personal history of DVTs. SKIN: Has rash. No skin cancer. PHYSICAL EXAM: VITAL SIGNS: Height 5 foot 6 inches, weight 239 pounds. BMI 38.6 GENERAL: Well-developed in no acute distress. HEENT: No scleral icterus. Extraocular movements grossly intact. Hears c onversational speech. No nasal drainage. NECK: Supple without lymphadenopathy. CHEST: Nonlabored respirations with equal bilateral excursions. CARDIOVASCULAR: Regular rate and regular rhythm. Distal 2+ pulses. ABDOMEN: Obese, soft, nontender, nondistended. MUSCULOSKELETAL: No clubbing, cyanosis. NEURO: No focal or lateralizing signs. Cranial nerves 2 through 12 grossly within normal limits. PSYCH: Appropriate affect. Alert and oriented to person, place and time. SKIN: Good skin turgor. Well perfused. ASSESSMENT: 1. Morbid obesity due to excess calories 2. Body mass index of 38.6 3. Hyperlipidemia 4. Gastroesophageal reflux disease 5. Irritable bowel syndrome 6. Anxiety 7. Depressive disorder 8. Complications from adjustable gastric band PLAN: 1. Bariatric options between a sleeve and a Ricardo-en-Y gastric bypass were reviewed in detail. The patient elected for a gastric bypass. Robotic assisted approach described. 2. The [place] [facility] Data was also reviewed with benefits and risks as described. 3. An 8 page second-generation bariatric consent form was reviewed in detail including potential of bleeding, infection, leaks, adequate weight loss, nutritional deficiencies which the patient demonstrated understanding of the risks. 4. A 2 week high-protein low caloric 800 kcal diet described to address hepatomegaly. 5. Preoperative labs including complete metabolic panel and CBC with type and screen recommended. 6. DVT prophylaxis per [place] [facility]. 7. Antibiotic prophylaxis. 8. Inpatient hospitalization anticipated for more than 2 nights. 9. All questions and concerns were addressed with the patient. 10. She is at elevated risk for perioperative complications due to pre-existing adjustable gastric band. 11. Overall, patient has expressed understanding of bariatric care including postoperative diet and commitment of lifestyle. Patient should benefit from surgical intervention for correction of her morbid obesity. Past Medical History Past Medical History: Hyperlipidemia Additional Past Medical History / Comment(s): Recent abn cholesterol. c/o acid reflux, muscle cramping around lab band port History of Any Multi-Drug Resistant Organisms: None Reported Past Surgical History: Bariatric Surgery, Section Additional Past Surgical History / Comment(s): EGD. Lap Band 2006. lap band removal 06-20-21 Past Anesthesia/Blood Transfusion Reactions: No Reported Reaction, Motion Sickness Smoking Status: Former smoker - Past Family History Mother Family Medical History: Cancer Additional Family Medical History / Comment(s): breast cancer. (Maternal Aunt had breast cancer) Medications and Allergies Home Medications Medication Instructions Recorded Confirmed Type Calcium + Vitamin D 2 each PO BID 06/13/21 07/29/21 History Multivitamins, Thera [Multivitamin 1 tab PO DAILY 06/13/21 07/29/21 History (formulary)] Linaclotide [Linzess] 72 mcg PO DAILY 06/20/21 07/29/21 History Allergies Allergy/AdvReac Type Severity Reaction Status Date / Time Sulfa (Sulfonamide Allergy Unknown Verified 07/29/21 10:33 Antibiotics) steri strips adhesive Allergy skin Uncoded 07/29/21 10:33 blisters, itching Results - Labs 07/29/21 15:45 07/29/21 15:45
[2021-08-01] MEDS ORDERED: GABAPENTIN 300 MG CAP PO PRN (10:11)
[2021-08-01] MEDS ORDERED: SCOPOLAMINE 1.5MG/72HR PATCH TRANSDERM PRN (10:11)
[2021-08-01] MEDS ORDERED: HEPARIN SODIUM,PORCINE/PF 5,000 UNIT/0.5 ML SYRINGE SQ PRN (10:11)
[2021-08-01] MEDS ORDERED: ACETAMINOPHEN TAB 500 MG TAB PO PRN (10:11)
[2021-08-01] MEDS: LACTATED RINGERS 1,000 ML IV SCH ×2 (11:26→16:23)
[2021-08-01] MEDS ORDERED: SUCCINYLCHOLINE CHLORIDE VIAL 200 MG/10 ML VIAL IV ONE (12:42)
[2021-08-01] MEDS ORDERED: PROPOFOL 10 MG/ML 20 ML VIAL IV ONE (12:42)
[2021-08-01] MEDS ORDERED: HYDROmorphone (PF) 1 MG/ML ONE (12:42)
[2021-08-01] MEDS ORDERED: fentaNYL (PF) 50 MCG/ML 2 ML AMP ONE (12:42)
[2021-08-01] MEDS ORDERED: GLYCOPYRROLATE 0.2 MG/ML 2 ML VIAL ONE (12:42)
[2021-08-01] MEDS ORDERED: NEOSTIGMINE 1 MG/ML 10 ML VIAL ONE (12:42)
[2021-08-01] MEDS ORDERED: ROCURONIUM 10 MG/ML (5 ML VIAL) IV ONE (12:42)
[2021-08-01] MEDS ORDERED: MIDAZOLAM 2 MG/2 ML VIAL ONE (12:42)
[2021-08-01] MEDS ORDERED: LIDOCAINE 1% INJ 10MG/ML (20 ML MDV) ONE (12:42)
[2021-08-01] MEDS ORDERED: BUPIVACAIN-EPI 0.25%-1:200,000 30 ML VIAL SQ ONE (13:28)
[2021-08-01] MEDS ORDERED: LACTATED RINGERS 1,000 ML IV ONE (14:30)
--- NOTE | 2021-08-01 15:56 | P.OP ---
Date of Procedure: 08/01/21 Description of Procedure: SURGEON: ABHIJEET JIMENEZ MD PREOPERATIVE DIAGNOSES: 1. Morbid obesity due to excess calories 2. Body mass index of 38.9 3. Hyperlipidemia 4. Gastroesophageal reflux disease 5. Irritable bowel syndrome 6. Anxiety 7. Depressive disorder 8. Complications from adjustable gastric band POSTOPERATIVE DIAGNOSES: 1. Morbid obesity due to excess calories 2. Body mass index of 38.9 3. Hyperlipidemia 4. Gastroesophageal reflux disease 5. Irritable bowel syndrome 6. Anxiety 7. Depressive disorder 8. Complications from adjustable gastric band 9. Severe pelvic adhesions due to prior 10. Incarcerated incisional hernia, 3 cm at lower abdomen due to prior C- section 11. Left upper quadrant peritoneal adhesions 12. Gastric peritoneal adhesions 13. Small bowel volvulus 14. Left ovarian cyst OPERATION: 1. Robotic assisted da Hardy Xi laparoscopic Ricardo-en-Y gastric bypass ABORTED 2. Robotic assisted da Hardy Xi laparoscopic extensive lysis of adhesions over 1 hour 3. Robotic assisted da Hardy Xi laparoscopic repair of incarcerated incisional hernia from prior without mesh 4. Robotic assisted da Hardy Xi laparoscopic reduction of small bowel volvulus, right lower quadrant ANESTHESIA: GETA and local ESTIMATED BLOOD LOSS: 5 mL SPECIMENS REMOVED: None. COMPLICATIONS: NONE. Operative Findings: 1. Severe pelvic adhesions from prior involving omentum to the abdominal wall 2. Incarcerated incisional hernia lower abdomen from prior 3 cm x 3 cm reduced and repaired without mesh 3. Retroperitoneal adhesions involving the right lower quadrant and distal ileum with intermittent small bowel volvulus reduced 4. Left upper quadrant omentum to abdominal wall adhesions lysed 5. Adhesions involving sigmoid colon left lower abdomen also lysed 6. Large left ovarian simple cyst over 3 cm INDICATIONS: Roma Grimes is a 50-year-old female who comes with lifelong morbid obesity. As result of morbid obesity, she has developed hyperlipidemia, osteoarthritis of the joints and gastroesophageal reflux disease. She recently had removal of her adjustable gastric band due to complications. She elected for gastric bypass. At height of 5 feet 6 inches, her ideal body weight is 154 pounds. She comes in 241 pounds. Her body mass index is 38.9 She is 87 pounds overweight. A second-generation bariatric consent form was described in detail including the possibility of protein malnutrition, leaks, gastrojejunal stricture, venous thrombosis, bowel obstruction, need for further surgery for which she demonstrated understanding. Benefits and risks of the procedure were described at length. Informed consent was obtained. DESCRIPTION: The patient was brought into the operating room theater. She was placed supine. She had received Lovenox subcutaneously for DVT prophylaxis. Additionally she Peridex oral solution as an oral decontaminant. After general induction, the abdomen was prepped and draped in standard sterile fashion. Ioban draping was placed along the abdomen. Mirza catheter was placed A robotic Max Rumpusi Xi system was prepped and primed. Incisions were proposed at 15 cm from the xiphoid. Proposed port sites were marked with indelible marker along the anterior axillary line bilaterally, mid clavicular line bilaterally with each port marked 10 cm from each other. The r12-mm port was marked for the right midclavicular line including along the left midclavicular line. Prior incisions from her adjustable gastric band removal involve the right upper quadrant incisions. A 5 mm 0 degrees laparoscopic trocar entry was performed along the left upper quadrant. The abdomen was insufflated to 15 mmHg pressure, which she tolerated well. Diagnostic laparoscopy demonstrated no injury to bowel, viscera, or mesentery. The liver was consistent with her 2-week protein diet sharp liver edge. Moderate to severe pelvic adhesions were found along the lower abdomen. As result, initial lysis of adhesions of the pelvis was proposed. The robot was docked with the patient in Trendelenburg 7. Initial adhesions were addressed using vessel sealer. Omentum to the abdominal wall adhesions were found involving the mid to lower pelvis including the left lower quadrant and left upper quadrant. Extensive lysis of adhesions over 30 minutes had occurred without injury to the small bowel. At the lower abdomen from her prior scar, omentum was found incarcerated in an incisional hernia involving the muscle. The incarcerated contents were reduced. The fascial edges were cleaned. Size of the defect was 3 x 3 cm. Using nonabsorbable #1 VLOC, the incisional hernia defect was oversewn 2 using fascial imbrication. Mesh repair was avoided due to pre-existing severe adhesions and risks for recurrent adhesions. Next, attention was brought to the cecum for investigation of the the small bowel for adhesions. The bowel was investigated from the ileocecal valve proximally to the ligament of Treitz. The first 20 cm of the ileum was scarred to the retroperitoneum with incomplete torsion of the small bowel mesentery for small bowel volvulus. The bowel was viable. The appendix was unremarkable. The adhesions were sharply lysed using vessel sealer. Adhesions were resected and small bowel volvulus was reduced. The small bowel was investigated proximally to the ligament of Treitz without any further intussusception or small bowel pathology identified. Separately, adhesions of the left lower pelvis was found of the sigmoid colon to the abdominal wall and similarly lysed using vessel sealer. A large over 3 cm left simple ovarian cyst was identified without ovarian torsion. The uterus was bulky. The right ovary was unremarkable. Next attention was brought to the upper abdomen. The robot was undocked and re- docked. The patient was repositioned in reverse Trendelenburg at 21. The robot was redirected to the upper abdomen. Adhesions of the left upper quadrant were sharply lysed using vessel sealer as omentum was adherent to the left abdominal wall. Perigastric and norris-hepatic adhesions to the undersurface of the liver were sharply lysed using vessel sealer. Total extensive lysis of adhesions over 1 hr was performed. Due to the findings of reduction of small bowel volvulus including extensive lysis of adhesions with risk of ileus and obstruction, her gastric bypass was aborted. At the end of the procedure, needle, sponge and instrument count had been verified correct by the surgical sales representative. The patient had tolerated the procedure well and was extubated and taken to the postanesthesia unit in stable condition. Plan - Discharge Summary Discharge Rx Participant: Yes New Discharge Prescriptions: New Simethicone [Gas-X] 125 mg PO AC-TID PRN #20 capsule PRN Reason: Pain Acetaminophen Tab [Tylenol Tab] 1,000 mg PO Q6HR PRN #30 tablet PRN Reason: Pain Continue Multivitamins, Thera [Multivitamin (formulary)] 1 tab PO DAILY Linaclotide [Linzess] 72 mcg PO DAILY Calcium + Vitamin D 2 each PO BID Discharge Medication List Calcium + Vitamin D 2 each PO BID 06/13/21 [History] Multivitamins, Thera [Multivitamin (formulary)] 1 tab PO DAILY 06/13/21 [History] Linaclotide [Linzess] 72 mcg PO DAILY 06/20/21 [History] Acetaminophen Tab [Tylenol Tab] 1,000 mg PO Q6HR PRN #30 tablet 08/01/21 [Rx] Simethicone [Gas-X] 125 mg PO AC-TID PRN #20 capsule 08/01/21 [Rx] Follow up App[facility]ment(s[facility]Ref[facility] [place] [facility] [place] [facility] Patient Instructions/Handouts: Bowel Obstruction (GEN), Abdominal Binder (DC), Ventral Hernia Repair (GEN), Lysis of Abdominal Adhesions (GEN) Activity/Diet/Wound Care/Special Instructions: CHANGE DRESSING ON ABDOMEN, August 08 No lifting for 4 pounds in 4 weeks, September 01 Using antibacterial soap such as Hibiclens May shower. No bathtub soaks for 2 weeks, August 15 Wear abdominal binder daily for comfort except for showering. Use ice along incisions for today to prevent swelling. Discharge Disposition: HOME SELF-CARE
[2021-08-01] MEDS ORDERED: ONDANSETRON 4 MG/2 ML VIAL ONE (16:21)
[2021-08-01] MEDS ORDERED: DEXAMETHASONE SOD PHOSPHATE 10 MG/ML 1 ML VIAL IVP PRN (17:29)
[2021-08-01] MEDS ORDERED: SODIUM CHLORIDE 0.9% 1,000 ML IV ONE (17:29)
[2021-08-01] MEDS ORDERED: TRIMETHOBENZAMIDE 100 MG/ML 2 ML VIAL IM PRN (17:30)
[2021-08-01] MEDS ORDERED: NALOXONE 0.4 MG/ML 1 ML VIAL IV PRN (17:41)
[2021-08-01] MEDS ORDERED: ACETAMINOPHEN IV (For NPO) 1,000 MG in EMPTY BAG 1 BAG IVPB ONE (21:30)
[2021-08-01] MEDS: KETOROLAC 15 MG/ML 1 ML VIAL IVP SCH ×2 (21:35→22:05)
[2021-08-01] MEDS: METOCLOPRAMIDE 5 MG/ML 2 ML VIAL IVP SCH ×2 (21:35→22:05)
[2021-08-01] MEDS: ONDANSETRON 4 MG/2 ML VIAL IVP SCH (21:35)
[2021-08-02] MEDS: ONDANSETRON 4 MG/2 ML VIAL IVP SCH ×3 (05:32→12:52)
[2021-08-02] MEDS: KETOROLAC 15 MG/ML 1 ML VIAL IVP SCH ×2 (05:35→12:55)
[2021-08-02] MEDS: METOCLOPRAMIDE 5 MG/ML 2 ML VIAL IVP SCH ×2 (05:36→12:52)
[2021-08-02 08:21] VITALS: BP 109/59; PULSE 61; RESP 14; TEMP 98.5
[2021-08-02] MEDS ORDERED: ENOXAPARIN 30 MG/0.3 ML SYRINGE SQ SCH (09:00)
--- NOTE | 2021-08-02 10:09 | P.DS ---
Providers Date of admission: 08/01/21 10:51 Expected date of discharge: 08/02/21 Attending physician: Charlotte Oliver Primary care physician: Talisha Ames Hospital Course: Discharge diagnosis: Morbid obesity, severe adhesions status post lysis of adhesions, incarcerated incisional hernia of the lower abdomen reduced and repaired without mesh. Hospital course: This is a 42-year-old female with a history of lifelong morbid obesity who was scheduled for Ricardo-en-Y gastric bypass, however due to extensive adhesions and incarcerated incisional hernia the Ricardo-en-Y gastric bypass was aborted. The patient is postop day #1 for robotic-assisted da Hardy Xi laparoscopic lysis of adhesions and repair of incarcerated incisional hernia from prior without mesh and reduction of small bowel volvulus. He is seen today and examined as follow-up. Nausea has improved. She is tolerating clear liquids. Advancing to regular diet for lunch. She's been up and ambulating. She is voiding without difficulty. She denies any flatus or bowel movement. Abdominal pain is well controlled. She has abdominal binder in place and incentive spirometer at bedside. She's been afebrile. The impression and plan of care has been dictated as directed. Dr. Oliver I performed a history and examination of this patient, discussed the same with the dictator. I agree with the dictator's note ,documented as a scribe. Any additional findings or plans will be noted. Procedures: OPERATION: 1. Robotic assisted da Hardy Xi laparoscopic Ricardo-en-Y gastric bypass ABORTED 2. Robotic assisted da Hardy Xi laparoscopic extensive lysis of adhesions over 1 hour 3. Robotic assisted da Hardy Xi laparoscopic repair of incarcerated incisional hernia from prior without mesh 4. Robotic assisted da Hardy Xi laparoscopic reduction of small bowel volvulus, right lower quadrant Patient Condition at Discharge: Stable Plan - Discharge Summary Discharge Rx Participant: Yes New Discharge Prescriptions: New Simethicone [Gas-X] 125 mg PO AC-TID PRN #20 capsule PRN Reason: Pain Acetaminophen Tab [Tylenol Tab] 1,000 mg PO Q6HR PRN #30 tablet PRN Reason: Pain Continue Multivitamins, Thera [Multivitamin (formulary)] 1 tab PO DAILY Linaclotide [Linzess] 72 mcg PO DAILY Calcium + Vitamin D 2 each PO BID Discharge Medication List Calcium + Vitamin D 2 each PO BID 06/13/21 [History] Multivitamins, Thera [Multivitamin (formulary)] 1 tab PO DAILY 06/13/21 [History] Linaclotide [Linzess] 72 mcg PO DAILY 06/20/21 [History] Acetaminophen Tab [Tylenol Tab] 1,000 mg PO Q6HR PRN #30 tablet 08/01/21 [Rx] Simethicone [Gas-X] 125 mg PO AC-TID PRN #20 capsule 08/01/21 [Rx] Follow up Appointment(s)/Referral(s[facility] [place] [facility] - [facility]21 (VOICEMAIL LEFT WITH THE OFFICE TO CALL PATIENT WITH A TIME. CF RN) Patient Instructions/Handouts: *Sur[facility] - Anesthesia Discharge Instructions, Bowel Obstruction (GEN), Abdominal Binder (DC), Ventral Hernia Repair (GEN), Lysis of Abdominal Adhesions (GEN) Activity/Diet/Wound Care/Special Instructions: CHANGE DRESSING ON ABDOMEN, August 08 No lifting for 4 pounds in 4 weeks, September 01 Using antibacterial soap such as Hibiclens May shower. No bathtub soaks for 2 weeks, August 15 Wear abdominal binder daily for comfort except for showering. Use ice along incisions for today to prevent swelling. Discharge Disposition: HOME SELF-CARE
== END 2021-08-02 14:11 | disposition home or self-care (01) | DRG 981 ==
LOC: UNDOADMIN 06:22 → 2ORMAIN 06:22 → 4SSUR 20:40
PROVIDERS: ADMIT Surgery Plastic and Reconstructive Surgery; ATTEND Surgery Plastic and Reconstructive Surgery
PROC: 0DNU4ZZ Release Omentum, Percutaneous Endoscopic Approach (ICD-10-PCS; principal; 2021-08-01 12:00)
PROC: 8E0W4CZ Robotic Assisted Procedure of Trunk Region, Percutaneous Endoscopic Approach (ICD-10-PCS; principal; 2021-08-01 12:00)
PROC: 0DNB4ZZ Release Ileum, Percutaneous Endoscopic Approach (ICD-10-PCS; principal; 2021-08-01 12:00)
PROC: 0DNN4ZZ Release Sigmoid Colon, Percutaneous Endoscopic Approach (ICD-10-PCS; principal; 2021-08-01 12:00)
PROC: 0WQF4ZZ Repair Abdominal Wall, Percutaneous Endoscopic Approach (ICD-10-PCS; principal; 2021-08-01 12:00)
PROC: 0DS84ZZ Reposition Small Intestine, Percutaneous Endoscopic Approach (ICD-10-PCS; principal; 2021-08-01 12:00)
DX: E66.01 Morbid (severe) obesity due to excess calories (principal); K56.2 Volvulus; K43.0 Incisional hernia with obstruction, without gangrene; Z53.8 Procedure and treatment not carried out for other reasons; K66.0 Peritoneal adhesions (postprocedural) (postinfection); N73.6 Female pelvic peritoneal adhesions (postinfective); Z68.38 Body mass index [BMI] 38.0-38.9, adult; E78.5 Hyperlipidemia, unspecified; K21.9 Gastro-esophageal reflux disease without esophagitis; M17.0 Bilateral primary osteoarthritis of knee; K58.9 Irritable bowel syndrome, unspecified; F41.9 Anxiety disorder, unspecified; F32.A Depression, unspecified; N83.292 Other ovarian cyst, left side; Z87.891 Personal history of nicotine dependence; Z79.899 Other long term (current) drug therapy; Z98.891 History of uterine scar from previous surgery; Z87.19 Personal history of other diseases of the digestive system; Z98.890 Other specified postprocedural states; Z88.2 Allergy status to sulfonamides; Z91.048 Other nonmedicinal substance allergy status; Z83.49 Family history of other endocrine, nutritional and metabolic diseases; Z80.3 Family history of malignant neoplasm of breast
CPT/HCPCS: 36415; 80053; 81025; 85025; 86850; 86900; 86901

== ENCOUNTER → 2021-08-03 | Outpatient (CLI) | payer BC ==
[2021-08-03 14:55] VITALS: BP 126/85; PULSE 61; RESP 16; TEMP 99; BMI 41.4
--- NOTE | 2021-08-03 15:18 | P.BASOAP ---
Subjective Progress Note Date: 08/03/21 DATE OF SERVICE: 08/03/2021 CHIEF COMPLAINT: Status post adjustable agstric band HISTORY OF PRESENT ILLNESS: Roma Grimes is a 50-year-old female with history of adjustable gastric band since 2006. She is now status post band removal 06/20/21. She is status post lysis of adhesions, 08/01/21. She is POD 2. She denies abdominal pain. No nausea or vomiting. At height of 5 feet 5 inches, her ideal body weight is 149 pounds. Her highest weight is 265 pounds, body mass index 44.2. Her lowest weight with the band was 200 pounds. She comes in 248 pounds from 243 pounds, 2 weeks ago. She has gained 5 pounds in 2 weeks. Her body mass index is 41.4. She is 99 pounds overweight. Her lifetime weight loss is 17 pounds. Her percent lifetime weight loss is 14%. PHYSICAL EXAM: VITAL SIGNS: Height 5 foot 5 inches, weight 248 pounds. BMI 41.4 Vital Signs Temp 99 F 08/03/21 14:49 Pulse 61 08/03/21 14:49 Resp 16 08/03/21 14:49 BP 126/85 08/03/21 14:49 Pulse Ox GENERAL: Well-developed in no acute distress. HEENT: No scleral icterus. Extraocular movements grossly intact. Hears conversational speech. No nasal drainage. NECK: Supple without lymphadenopathy. CHEST: Nonlabored respirations with equal bilateral excursions. CARDIOVASCULAR: Regular rate and regular rhythm. Distal 2+ pulses. ABDOMEN: Obese. Non-tender MUSCULOSKELETAL: No clubbing, cyanosis. NEURO: No focal or lateralizing signs. Cranial nerves 2 through 12 grossly within normal limits. PSYCH: Appropriate affect. Alert and oriented to person, place and time. SKIN: Good skin turgor. Well perfused. ASSESSMENT: 1. Morbid obesity due to excess calories 2. Body mass index of 44.2 to 41.4 3. Gastroesophageal reflux disease 4. Chronic constipation 5. Post op nausea and vomiting 6. Motion sickness 7. Generalized anxiety disorder 8. Depressive disorder 9. Complications of adjustable gastric band. 10. Status post band removal 11. Status post lysis of adhesions PLAN: 1. Results of surgery described with extensive lysis of adhesions. Images reviewed. 2. She is still looking into a gastric bypass. Objective - Vital Signs Vital signs: Vital Signs Temp 99 F 08/03/21 14:49 Pulse 61 08/03/21 14:49 Resp 16 08/03/21 14:49 BP 126/85 08/03/21 14:49 Pulse Ox Intake & Output 08/02/21 08/03/21 08/03/21 18:59 06:59 18:59 Weight 112.945 kg Assessment/Plan Plan: Date: 08/03/21 Initial Weight: 108.409 kg Initial BMI: 39.7 Current Weight: 112.945 kg Current BMI: 41.4 Type of Surgery: Total Volume in Band: 5 Previous Volume: Volume Removed: Volume Added: Band Size:
== END ==
LOC: BARWHC3 14:33
PROVIDERS: ATTEND Surgery Plastic and Reconstructive Surgery
DX: E66.01 Morbid (severe) obesity due to excess calories (principal); K59.09 Other constipation; Z68.41 Body mass index [BMI] 40.0-44.9, adult; K21.9 Gastro-esophageal reflux disease without esophagitis; R11.2 Nausea with vomiting, unspecified; T75.3XXA Motion sickness, initial encounter; F41.1 Generalized anxiety disorder; F32.A Depression, unspecified; K95.89 Other complications of other bariatric procedure; Z98.890 Other specified postprocedural states; Z88.2 Allergy status to sulfonamides; Z91.048 Other nonmedicinal substance allergy status
CPT/HCPCS: 99211

== ENCOUNTER → 2021-09-14 | Outpatient (CLI) | payer BC ==
--- NOTE | 2021-09-14 09:26 | P.BASOAP ---
Subjective Progress Note Date: 09/14/21 DATE OF SERVICE: 09/14/2021 CHIEF COMPLAINT: Morbid obesity HISTORY OF PRESENT ILLNESS: Roma Grimes is a 51-year-old female who comes with lifelong morbid obesity. She has adjustable gastric band since 2006 with removal 06/20/21. She then had attempted gastric bypas that was aborted 08/01/21 due to severe intra-abdominal adhesions and ventral hernia repair. She is almost 2 months out from her attempted procedure. She has completed medical supervised weight loss. She still wants a gastric bypass. At height of 5 feet 5 inches, her ideal body weight is 149 pounds. Her highest weight is 287 pounds, body mass index 47.9. Her lowest weight with the band was 200 pounds. She comes in 243 pounds from 244 pounds, 2 months ago. Her body mass index is 40.6. She is 94 pounds overweight. PAST MEDICAL HISTORY: 1. Morbid obesity due to excess calories 2. Body mass index of 44.2 3. Gastroesophageal reflux disease 4. Chronic constipation 5. Post op nausea and vomiting 6. Motion sickness 7. Generalized anxiety disorder 8. Depressive disorder PAST SURGICAL HISTORY: 1. Section 2. Adjustable gastric band placement 3. Adjustable gastric band removal, 06/20/21 4. Incisional hernia repair, 08/01/21 HOME MEDICATIONS: Home Medications Medication Instructions Recorded Confirmed Calcium + Vitamin D 2 each PO BID 06/13/21 09/14/21 Multivitamins, Thera [Multivitamin 1 tab PO DAILY 06/13/21 09/14/21 (formulary)] Linaclotide [Linzess] 72 mcg PO DAILY 06/20/21 09/14/21 Previous Rx's Medication Instructions Recorded Acetaminophen Tab [Tylenol Tab] 1,000 mg PO Q6HR PRN #30 tablet 08/01/21 Simethicone [Gas-X] 125 mg PO AC-TID PRN #20 capsule 08/01/21 ALLERGIES: Allergies Allergy/AdvReac Type Severity Reaction Status Date / Time Sulfa (Sulfonamide Allergy Unknown Verified 08/01/21 11:08 Antibiotics) steri strips adhesive Allergy skin Uncoded 08/01/21 11:08 blisters, itching SOCIAL HISTORY: Past tobacco use. FAMILY HISTORY: No family history of ulcerative colitis disease or Crohn's disease. Family history of morbid obesity. No lupus in the family. No reports of stomach or esophageal cancer. She reports her grandmother had obesity. REVIEW OF ORGAN SYSTEMS: CONSTITUTIONAL: At height of 5 feet 8 inches, her ideal body weight is 163 pounds. Her highest weight is 287 pounds, body mass index 43.8. She comes in 287 pounds. Her body mass index is 43.8. She is 124 pounds overweight. HEENT: Denies any active troubles with vision or hearing. ENDOCRINE: Denies diabetes. Denies hypothyroidism. CARDIOVASCULAR: Denies past reports of palpitations or heart attacks or chest pain. RESPIRATORY: Has daytime somnolence and snores. GASTROINTESTINAL: Denies any bright red blood per rectum. No diarrhea. Chronic constipation. Post op nausea and vomiting. GENITOURINARY: Denies bladder urgency. No recent blood in urine MUSCULOSKELETAL: Has lower back pain and joint pain. Denies history of bilateral lower extremity edema. NEURO: Has chronic migraines. No seizure disorders. PSYCH: Has depression. No suicidal ideation. Has anxiety. RHEUMATOLOGIC: No lupus. No rheumatoid arthritis. HEMATOLOGIC: Denies any abnormal bleeding or bruising. Denies past history of DVTs. SKIN: No rash. No skin cancer. PHYSICAL EXAM: VITAL SIGNS: Height 5 foot 5 inches, weight 243 pounds. BMI 40.6 Vital Signs Temp 98.2 F 09/14/21 10:20 Pulse 71 09/14/21 10:20 Resp BP 110/76 09/14/21 10:20 Pulse Ox Intake & Output 09/14/21 09/14/21 09/15/21 06:59 18:59 06:59 Weight 110.677 kg GENERAL: Well-developed in no acute distress. HEENT: No scleral icterus. Extraocular movements grossly intact. Hears conversational speech. No nasal drainage. NECK: Supple without lymphadenopathy. CHEST: Nonlabored respirations with equal bilateral excursions. CARDIOVASCULAR: Regular rate and regular rhythm. Distal 2+ pulses. ABDOMEN: Obese, soft, nontender, nondistended. MUSCULOSKELETAL: No clubbing, cyanosis. NEURO: No focal or lateralizing signs. Cranial nerves 2 through 12 grossly within normal limits. PSYCH: Appropriate affect. Alert and oriented to person, place and time. SKIN: Good skin turgor. Well perfused. ASSESSMENT: 1. Morbid obesity due to excess calories 2. Body mass index of 44.2 to 40.6 3. Gastroesophageal reflux disease 4. Chronic constipation 5. Post op nausea and vomiting 6. Motion sickness 7. Generalized anxiety disorder 8. Depressive disorder 9. Complications of adjustable gastric band. 10. Peritoneal adhesions PLAN: 1. Bariatric options between a sleeve, band and a Ricardo-en-Y gastric bypass were reviewed in detail. The patient elected for a gastric bypass. Robotic assisted approach described. 2. The [place] [facility] Data was also reviewed with benefits and risks as described. 3. An 8 page second-generation bariatric consent form was reviewed in detail including potential of bleeding, infection, leaks, adequate weight loss, nutritional deficiencies which the patient demonstrated understanding of the risks. 4. A 2 week high-protein low caloric 800 kcal diet described to address hepatomegaly. 5. Preoperative labs including complete metabolic panel and CBC with type and screen recommended. 6. DVT prophylaxis per [place] [facility]. 7. Antibiotic prophylaxis. 8. Inpatient hospitalization anticipated for more than 2 nights. 9. All questions and concerns were addressed with the patient. 10. She is at elevated risk for perioperative complications due to multiple abdominal surgeries 11. Overall, patient has expressed understanding of bariatric care including postoperative diet and commitment of lifestyle. Patient should benefit from surgical intervention for correction of her morbid obesity. 12. On the condition of anomalies or severe scar tissue, patient opted for sleeve gastrectomy. 13. Adequate hydration 2-3 L fluids day before surgery described. 14. Additionally following protein diet reviewed. 15. Using antibacterial soap Hibiclens to decrease risk of infection also described. 16. Benefits and risks of surgery reviewed and consent reviewed. Assessment/Plan Plan: Date: Initial Weight: 108.409 kg Initial BMI: Current Weight: Current BMI: Type of Surgery: Total Volume in Band: 5 Previous Volume: Volume Removed: Volume Added: Band Size:
[2021-09-14 10:30] VITALS: BP 110/76; PULSE 71; TEMP 98.2; BMI 40.6
== END ==
LOC: BARWHC3 09:01
PROVIDERS: ATTEND Surgery Plastic and Reconstructive Surgery
DX: E66.01 Morbid (severe) obesity due to excess calories (principal); K59.09 Other constipation; R11.2 Nausea with vomiting, unspecified; K21.9 Gastro-esophageal reflux disease without esophagitis; F41.1 Generalized anxiety disorder; T75.3XXA Motion sickness, initial encounter; F32.A Depression, unspecified; K95.89 Other complications of other bariatric procedure; K66.0 Peritoneal adhesions (postprocedural) (postinfection); Z88.2 Allergy status to sulfonamides; Z91.048 Other nonmedicinal substance allergy status; Z87.891 Personal history of nicotine dependence; Z68.41 Body mass index [BMI] 40.0-44.9, adult
CPT/HCPCS: 99211

== ENCOUNTER → 2021-09-14 | Outpatient (CLI) | payer BC ==
[2021-09-14 14:41] LABS: Basophils # (A) 0.04 X 10*3/uL (0.00-0.10); Basophils % (A) 0.7 %; Eosinophils # (A) 0.09 X 10*3/uL (0.04-0.35); Eosinophils % (A) 1.6 %; HCT 41.2 % (37.2-46.3); HGB 13.4 g/dL (12.0-15.0); Immature Grans, Automated 0.2 %; Lymphocytes # (A) 1.56 X 10*3/uL (0.90-5.00); Lymphocytes % (A) 28.4 %; MCH 31.3 pg (27.0-32.0); MCHC 32.5 g/dL (32.0-37.0); MCV 96.3 fL (80.0-97.0); Monocytes # (A) 0.43 X 10*3/uL (0.20-1.00); Monocytes % (A) 7.8 %; NRBC Per 100 WBC 0 /100 WBCS (0.0-0.0); Neutrophils # (A) 3.36 X 10*3/uL (1.80-7.70); Neutrophils % (A) 61.3 %; Platelet Count 300 X 10*3/uL (140-440); RBC 4.28 X 10*6/uL (4.10-5.20); RDW 12.7 % (11.5-14.5); WBC 5.49 X 10*3/uL (4.50-10.00)
[2021-09-14 19:00] LABS: African American GFR (CKD) 100.2 (60.0-200.0); Albumin 4.6 g/dL (3.8-4.9); Albumin/Globulin Ratio 2.06 (1.60-3.17); BUN/Creat Ratio 19.73 Ratio (12.00-20.00); Blood Urea Nitrogen 15.8 mg/dL (9.0-27.0); Calcium 9.7 mg/dL (8.7-10.3); Carbon Dioxide 25.4 mmol/L (20.0-27.5); Globulin 2.2 g/dL (1.6-3.3); Non-African American GFR(CKD) 86.4 (60.0-200.0); Potassium 4.8 mmol/L (3.5-5.5); Total Bilirubin 0.5 mg/dL (0.30-1.20); Total Protein 6.8 g/dL (6.2-8.2)
== END | disposition home or self-care (01) ==
LOC: LABPAT 09:33
PROVIDERS: ATTEND Surgery Plastic and Reconstructive Surgery
DX: Z01.812 Encounter for preprocedural laboratory examination (principal)
CPT/HCPCS: 36415; 80053; 85025

== ENCOUNTER → 2022-01-11 | Outpatient (CLI) | payer BC ==
[2022-01-11 16:29] VITALS: BP 133/83; PULSE 77; TEMP 98; BMI 36.9
--- NOTE | 2022-01-11 17:02 | P.BASOAP ---
Subjective Progress Note Date: 01/11/22 She reports no ulcers or pain. She has moderate stress. She has lost 26 pounds in 3 months. BMI 36.9. Labs reviewed from October. Her mother in the last 2 months suddenly with moderate stress. No further constipation. Meal yesterday brkfast left overs 1/2 hamburger rogelio. Protein shakes are few. She is not keeping track of foods. She forgets to drink her shakes due to stress. Objective - Vital Signs Vital signs: Vital Signs Temp 98 F 01/11/22 16:24 Pulse 77 01/11/22 16:24 Resp BP 133/83 01/11/22 16:24 Pulse Ox FiO2 Intake & Output 01/10/22 01/11/22 01/11/22 18:59 06:59 18:59 Weight 100.698 kg Assessment/Plan Plan: Date: 01/11/22 Initial Weight: 108.409 kg Initial BMI: 39.7 Current Weight: 100.698 kg Current BMI: 36.9 Type of Surgery: Total Volume in Band: 5 Previous Volume: Volume Removed: Volume Added: Band Size:
== END | disposition home or self-care (01) ==
LOC: BARWHC3 15:53
PROVIDERS: ATTEND Surgery Plastic and Reconstructive Surgery
DX: E66.01 Morbid (severe) obesity due to excess calories (principal); Z68.39 Body mass index [BMI] 39.0-39.9, adult
CPT/HCPCS: 99211

== ENCOUNTER → 2022-03-23 | Outpatient (CLI) | payer BC ==
[2022-03-23 17:17] LABS: INR 0.9 (<1.2); Partial Thromboplastin Time 24.6 sec (22.0-30.0); Prothrombin Time 10.1 sec (9.0-12.0)
[2022-03-23 22:30] LABS: HGB 12.7 g/dL (12.0-15.0); MCHC 32.6 g/dL (32.0-37.0); MCV 95.1 fL (80.0-97.0); NRBC Per 100 WBC 0 /100 WBCS (0.0-0.0); Platelet Count 316 X 10*3/uL (140-440); RDW 12.8 % (11.5-14.5)
[2022-03-23 23:02] LABS: % Iron Saturation 9.39 (12.00-45.00); ALT 26 U/L (8-44); AST 24 U/L (13-35); African American GFR (CKD) 91.4 (60.0-200.0); Albumin 4.3 g/dL (3.8-4.9); Albumin/Globulin Ratio 1.97 (1.60-3.17); Alkaline Phosphatase 81 U/L (41-126); BUN/Creat Ratio 23.26 Ratio (12.00-20.00); Blood Urea Nitrogen 20.1 mg/dL (9.0-27.0); Calcium 9.4 mg/dL (8.7-10.3); Carbon Dioxide 26.3 mmol/L (20.0-27.5); Chloride 102 mmol/L (96-109); Ferritin 20.7 ng/mL (10.0-291.0); Globulin 2.2 g/dL (1.6-3.3); Glucose 93 mg/dL (70-110); Iron 38 ug/dL (50-170); Magnesium 2.1 mg/dL (1.5-2.4); Non-African American GFR(CKD) 78.9 (60.0-200.0); Phosphorus 3.7 mg/dL (2.4-5.1); Potassium 4.7 mmol/L (3.5-5.5); Sodium 138 mmol/L (135-145); Total Iron Binding Capacity 400 ug/dL (228-460); Total Protein 6.5 g/dL (6.2-8.2)
[2022-03-23 23:30] LABS: Chol/HDL Ratio 3.66 Ratio; LDL Cholesterol,Calculated 100.5 mg/dL (0.0-131.0); Prealbumin 21.9 mg/dL (18.0-42.0)
[2022-03-24 13:47] LABS: Zinc, Serum 58 ug/dL (60-130)
== END | disposition home or self-care (01) ==
LOC: LABWHC1 15:38
PROVIDERS: ATTEND Surgery Plastic and Reconstructive Surgery
DX: T56.894A Toxic effect of other metals, undetermined, initial encounter (principal); E66.01 Morbid (severe) obesity due to excess calories; D50.8 Other iron deficiency anemias; K91.2 Postsurgical malabsorption, not elsewhere classified; E44.0 Moderate protein-calorie malnutrition; E45 Retarded development following protein-calorie malnutrition; E55.9 Vitamin D deficiency, unspecified; K74.1 Hepatic sclerosis; N19 Unspecified kidney failure
CPT/HCPCS: 36415; 80053; 80061; 82306; 82525; 82607; 82728; 82746; 83036; 83540; 83550; 83735; 83970; 84100; 84134; 84255; 84425; 84443; 84590; 84630; 85027; 85610; 85730

== ENCOUNTER → 2022-03-23 | Outpatient (CLI) | payer BC ==
--- NOTE | 2022-03-24 07:49 | MM ---
Reason for Exam: Screening (asymptomatic). Last mammogram was performed 1 year(s) and 4 month(s) ago. Patient History: Menarche at age 14. First Full-Term at age 24. Maternal cousin had breast cancer, age 50. Maternal aunt had breast cancer, age 60. Maternal cousin had breast cancer. Mother had breast cancer, age 58. Risk Values: Stacey 5 year model risk: 1.8%. NCI Lifetime model risk: 16.7%. Prior Study Comparison: 06/18/2017 Bilateral Screening Mammogram, [facility]. 11/14/2019 Bilateral Screening Mammogram, [facility]. 11/19/2020 Bilateral Screening Mammogram, [facility]. Tissue Density: The breast tissue is heterogeneously dense. This may lower the sensitivity of mammography. Findings: Analyzed By CAD. Asymmetric distortion upper outer right breast zone C. Additional views are recommended. No suspicious microcalcifications. Left breast is unremarkable. Overall Assessment: Incomplete: need additional imaging evaluation, BI-RAD 0 Management: Diagnostic Mammogram of the right breast. A clinical breast exam by your physician is recommended on an annual basis and results should be correlated with mammographic findings. Electronically signed and approved by: Bert Marshall M.D. Radiologis
== END | disposition home or self-care (01) ==
LOC: RADMAMWWP 16:18
PROVIDERS: ATTEND Obstetrics & Gynecology
DX: Z12.31 Encounter for screening mammogram for malignant neoplasm of breast (principal); Z80.3 Family history of malignant neoplasm of breast
CPT/HCPCS: 77063; 77067

== ENCOUNTER → 2022-03-29 | Outpatient (CLI) | payer BC ==
--- NOTE | 2022-03-29 10:56 | MM ---
Reason for Exam: Additional evaluation requested from prior study. Last screening mammogram was performed less than 1 month ago. Patient History: Menarche at age 14. First Full-Term at age 24. Maternal cousin had breast cancer, age 50. Maternal aunt had breast cancer, age 60. Maternal cousin had breast cancer. Mother had breast cancer, age 58. Risk Values: Stacey 5 year model risk: 1.8%. NCI Lifetime model risk: 16.7%. Tissue Density: Right: The breast tissue is almost entirely fat. Findings: Analyzed By CAD. Focal asymmetry within the right breast posterior depth which persists with spot compression imaging approximately 9.0 cm from the nipple. No suspicious calcifications are identified. Overall Assessment: Incomplete: need additional imaging evaluation, BI-RAD 0 Management: Diagnostic Breast Ultrasound of the right breast. A clinical breast exam by your physician is recommended on an annual basis and results should be correlated with mammographic findings. This exam should not preclude additional follow-up of suspicious palpable abnormalities. Results were given to the patient verbally at the time of exam. Electronically signed and approved by: Malcom Mccartney DO
--- NOTE | 2022-03-29 11:59 | USB ---
Reason for Exam: Additional evaluation requested from abnormal screening. Patient History: Menarche at age 14. First Full-Term at age 24. Maternal cousin had breast cancer, age 50. Maternal aunt had breast cancer, age 60. Maternal cousin had breast cancer. Mother had breast cancer, age 58. Risk Values: Stacey 5 year model risk: 1.8%. NCI Lifetime model risk: 16.7%. Technique: Method: Targeted. Prior Study Comparison: 11/14/2019 Bilateral Screening Mammogram, MERGED WITH [facility]. 11/19/2020 Bilateral Screening Mammogram, MERGED WITH [facility]. 03/23/2022 Bilateral MG 3D screening mammo w/cad, MERGED WITH [facility]. Findings: The upper outer quadrant of the right breast, the axilla of the right breast and the retroareolar of the right breast were scanned. The right breast was imaged in the area of concern. Right breast 10:00 10 cm from nipple is a hypoechoic nipple with normal reniform morphology. No suspicious features. Right breast 11:00 4 cm from nipple is a 6 x 5 x 8 mm mildly heterogenous lesion which is felt to represent clustered cysts with some posterior acoustic enhancement. No suspicious masses identified.The right breast was imaged in the area of concern including the retroareolar region. Right breast 10:00 10 cm from nipple is a hypoechoic nipple with normal reniform morphology. No suspicious features. Right breast 11:00 4 cm from nipple is a 6 x 5 x 8 mm mildly heterogenous lesion which is felt to represent clustered cysts with some posterior acoustic enhancement. No suspicious masses identified. Overall Assessment: Benign, BI-RAD 2 Management: Screening Mammogram of both breasts in 1 year. A clinical breast exam by your physician is recommended on an annual basis and results should be correlated with mammographic findings. This exam should not preclude additional follow-up of suspicious palpable abnormalities. Results were given to the patient verbally at the time of exam. Electronically signed and approved by: Malcom Mccartney DO
== END | disposition home or self-care (01) ==
LOC: RADMAMWWP 10:17
PROVIDERS: ATTEND Obstetrics & Gynecology
DX: R92.8 Other abnormal and inconclusive findings on diagnostic imaging of breast (principal); Z80.3 Family history of malignant neoplasm of breast
CPT/HCPCS: 77061; 77065